=== PATIENT | male | born 2005 | race Caucasian/White ===

== ENCOUNTER 2025-04-23 16:58 | Emergency (ER) | payer BC, SELFPAY ==
[2025-04-23 17:12] LABS: Hematocrit 44.3 % (39.0-52.0); Hemoglobin 15.3 g/dL (13.0-18.0); Mean Corp Hgb Conc. 34.5 g/dL (33.0-37.0); Mean Corpuscular Volume 90.2 fL (80.0-94.0); Nucleated Red Blood Cells % 0 % (-); Platelet Count 200 10^3/uL (130-400); Red Cell Dist. Width 11.4 % (11.5-14.5)
[2025-04-23 17:34] LABS: ALT (SGPT) 18 U/L (0-50); AST (SGOT) 24 U/L (17-59); Albumin 5.0 g/dl (3.5-5.0); Alkaline Phosphatase 106 U/L (38-126); Blood Urea Nitrogen 15 mg/dl (9-20); Calcium 9.7 mg/dl (8.4-10.2); Carbon Dioxide 27 mmol/L (22-30); Chloride 99 mmol/L (98-107); Glucose 135 mg/dl (70-99); Lipase 37 U/L (23-300); Potassium 3.7 mmol/L (3.5-5.1); Sodium 133 mmol/L (135-145); Total Protein 7.9 g/dl (6.3-8.2); eGFR > 60.00
[2025-04-23 21:09] VITALS: BP 137/72
--- NOTE | 2025-04-23 21:10 | ED.GENMED ---
History of Present Illness
General
Chief Complaint: Abdominal Pain
Time Seen by Provider: 04/23/25 20:40
History of Present Illness
History of Present Illness:
19-year-old male presents to the emergency department with both parents for evaluation of acute onset of dizziness associated with profuse vomiting began approximately 8 hours ago. He has a challenging time describing the dizziness, but does not
describe any diplopia or vertiginous type symptoms. Denies any blurry or loss of vision. After the multiple bouts of vomiting he reports a right occipital headache. Denies any difficulty ambulating. No chest pain or shortness of breath. Denies
fever or neck pain.
Past History
Social History
Tobacco: Non-smoker
Alcohol: None
Drug: None
Review of Systems
Review of Systems
Allergies reviewed?: Yes
All Other Systems: ROS reviewed and negative except as documented in HPI and ROS
Phy Exam
Physical Exam
Physical Exam:
GEN: Well appearing, NAD, WDWN
HEENT: Oral mucosa moist, no scleral icterus, no nasal congestion
Cardiac: Regular rate and rhythm, no murmur
Lung: No respiratory distress, no tachypnea
MSK: No gross deformity or injuries
Skin: Good color, no pallor or jaundice, no rashes
Neuro: AO x3; CN II-XII grossly intact. BUE strength 5/5 in all melo, sensation intact and symmetric. BLE strength 5/5 in all melo, sensation intact and symmetric, gait is steady
Psych: Calm, cooperative
Course
Orders/Labs/Results
Orders:
Orders
04/23/25 17:07
Complete Blood Count/With Diff Urgent
Comprehensive Metabolic Panel Urgent
Lipase Urgent
04/23/25 21:01
CT Head W/o Iv Contrast Urgent
Comment:
Reason For Exam: headache vomiting
0.9% Sodium Chloride 1000 ml [Nss] 1,000 ml IV BOLUS
Ondansetron Injectable [Zofran] 4 mg IV NOW STA
04/23/25 21:54
Ketorolac [Toradol] 15 mg IV NOW STA
04/23/25 22:49
Ketorolac [Toradol] 15 mg IV NOW STA
Abnormal Lab Results
04/23/25
17:07
WBC 15.1 H 10^3/uL
(4.8-10.8)
MCH 31.2 H pg
(27.0-31.0)
RDW 11.4 L %
(11.5-14.5)
Abs Immat Gran (auto) 0.1 H 10^3/uL
(0-0.05)
Absolute Neuts (auto) 13.2 H 10^3/uL
(1.4-6.5)
Neutrophils % 87.3 H %
(42.2-75.2)
Lymphocytes % 8.1 L %
(20.5-51.1)
Sodium 133 L mmol/L
(135-145)
Glucose 135 H mg/dl
(70-99)
04/23/25 17:07
04/23/25 17:07
Vital Signs
Initial and Last Documented VS:
Initial Vital Signs
Temp Pulse Resp Pulse Ox
98.5 F 68 16 98
04/23/25 17:01 04/23/25 17:01 04/23/25 17:01 04/23/25 17:01
Last Documented Vital Signs
Temp Pulse Resp BP Pulse Ox
98.2 F 84 16 118/60 98
04/23/25 21:13 04/23/25 21:13 04/23/25 17:01 04/23/25 23:00 04/23/25 21:12
MDM/Problems Addressed
MDM/Problems Addressed:
Unclear etiology to the patient's symptoms. He developed dizziness prior to anything and the headache did not start until after the vomiting. Certainly could represent an acute viral syndrome, doubt meningitis/encephalitis given lack of fever and
lack of meningismus on exam. He is neurologically intact and with a normal CT of the head, coupled with the fact that the headache did not present itself first, I have a low suspicion for subarachnoid hemorrhage. Treated supportively with IV
fluids and antiemetics with good improvement in the ED.
*Pulse Oximetry
SaO2: 98
Oxygen Mode of Delivery: Room air
Patient hypoxic: no
*Critical Care Note
Total Time (30-74mins, 75-104mins- exclusive of procedures): Not Applicable
ED Attending Note
-
Portions of this chart may have been created with voice recognition software.� Occasional wrong word or��sound alike� substitutions may have occurred due to the inherent limitations of voice recognition software.
Discharge Plan
Departure
Patient Disposition: Home (Routine Discharge)
Date of Disposition: 04/23/25
Time of Disposition: 23:12
Patient with high blood pressure during this ER visit?: No
Discharge Problem:
Vomiting, Headache
Instructions: Nausea and Vomiting, Adult (DC)
Prescriptions:
No Action
No Current Medications
0
Referrals:
NONE,* [Active, Internal Medicine]
Interventions
Interventions:
*Risk Screen - Suicide Last Done: 04/23/25 17:01
*General Assessment Last Done: 04/23/25 17:01
*Neglect/Abuse Screening Last Done: 04/23/25 17:01
*ED- Fall Risk Assessment Last Done: 04/23/25 23:35
*ED COVID-19 Vaccine History Last Done: 04/23/25 21:13
*ED Influenza Vaccine History Last Done: 04/23/25 21:13
*Nursing Disposition Last Done: 04/23/25 23:35
GG-Lxrtif-Fjutqrkwbx Assessment Last Done: 04/23/25 21:00
Discharge Date and Time
Discharge Date/Time: 04/23/25 23:36
Print Language: UKRAINIAN
[2025-04-23] MEDS: ZOFRAN 4 MG IV (21:17)
[2025-04-23] MEDS: NSS 1000 IV (21:19)
[2025-04-23 22:43] VITALS: BMI 20.9
[2025-04-23 22:46] VITALS: BP 124/66
[2025-04-23] MEDS: TORADOL 15 MG IV (22:50)
[2025-04-23 23:00] VITALS: BP 118/60
== END 2025-04-23 23:36 | disposition home or self-care (01) ==
LOC: EMR 16:58
PROVIDERS: Emergency Medicine; EMERGENCY PHYSICIAN Emergency Medicine; FAMILY PHYSICIAN Internal Medicine
DX: R11.2 Nausea with vomiting, unspecified (principal); R51.9 Headache, unspecified
CPT/HCPCS: 99284; 96374; 96375; 96376; 96361; 70450; 80053; 83690; 85025